=== PATIENT | female | born 1985 | race Caucasian/White ===

== ENCOUNTER 2017-05-26 12:15 | Observation (INO) | payer OTHER | END 2017-05-26 13:55 | disposition home or self-care (01) | LOC: MW.OBCHECK 12:15 → MW.OB 12:20 → MW.OBCHECK 13:55 | PROVIDERS: ADMIT Obstetrics & Gynecology; ATTEND Obstetrics & Gynecology | DX: Z36.89 Encounter for other specified antenatal screening (principal); O24.414 Gestational diabetes mellitus in pregnancy, insulin controlled; E66.01 Morbid (severe) obesity due to excess calories; Z3A.31 31 weeks gestation of pregnancy | CPT/HCPCS: 36415; 59025; 83036 ==

== ENCOUNTER 2017-07-08 12:54 | Inpatient (IN) | payer OTHER ==
[2017-07-08] MEDS ORDERED: Sodium Chloride 0.9% 2.5 ML Syringe FLUSH PRN (15:36)
[2017-07-08] MEDS ORDERED: ceFAZolin 2 GM in Premix Bag 1 BAG IV ONE (15:36)
[2017-07-08] MEDS ORDERED: Sodium Chloride 0.9% 10 ML Syringe FLUSH PRN (15:36)
[2017-07-08] MEDS ORDERED: Citric Acid/Sodium Citrate Solution 30 ML Cup PO SCH (15:45)
[2017-07-08] MEDS ORDERED: Oxytocin/0.9 % Sodium Chloride 30 UNIT/500 ML BAG IV SCH (15:45)
--- NOTE | 2017-07-08 15:55 | PCM.PREANE ---
Preanesthetic Assessment - Procedure Proposed Procedure: ; due to non-reassurring activity (tubal). - Anesthesia/Transfusion/Family Hx Anesthesia History: Prior Anesthesia Without Reaction Family History of Anesthesia Reaction: No Intubation History: Unknown Additional History: Prior still in past; today when decision was made she had food at 1400 to stimulate fetus, needs 2+ hours to get back here for delivery so plan is for the surgical procedure to be done around 2000 hrs. - Review of Systems General: No Symptoms Pulmonary: Cough (recovering from URI few weeks ago.), Other Cardiovascular: No Symptoms Gastrointestinal: Other (GERD) Neurological: Difficulty Walking (due to bocy habitus with ) Other: Reports: Diabetes - Physical Assessment NPO Status Date: 07/08/17 NPO Status Time: 14:00 Height: 5 ft 9 in Weight: 296 lb ASA Class: 3 Mental Status: Alert & Oriented x3 Airway Class: Mallampati = 1 Dentition: Reports: Normal Dentition Thyro-Mental Finger Breadths: 3 Mouth Opening Finger Breadths: 3 ROM/Head Extension: Full Lungs: Clear to Auscultation, Normal Respiratory Effort Cardiovascular: Regular Rate, Regular Rhythm, No Murmurs Other: Back examined - palpable midline posterior processes of lumbar vertebrae - Allergies Allergies/Adverse Reactions: Allergies Allergy/AdvReac Type Severity Reaction Status Date / Time No Known Allergies Allergy Verified 06/02/17 12:45 - Blood Blood Available: No - Anesthesia Plan Pre-Op Medication Ordered: Antacids - Acknowledgements Anesthesia Type Planned: Spinal Pt an Appropriate Candidate for the Planned Anesthesia: Yes Alternatives and Risks of Anesthesia Discussed w Pt/Guardian: Yes Pt/Guardian Understands and Agrees with Anesthesia Plan: Yes PreAnesthesia Questionnaire - HOME MEDS Home Medications: Home Meds Vit W-Ca,Fe,FA(<1 mg) [ Vitamins] 1 tab PO DAILY 04/28/17 [ History] Insulin Detemir [Levemir Flextouch] 100 ml SUBCUT ASDIRECTED PRN 05/26/17 [ History] Insulin Lispro [Humalog] 100 pen SUBCUT ASDIRECTED PRN 05/26/17 [History] Iron 1 tab PO DAILY 05/26/17 [History] - CURRENT (IN HOUSE) MEDS Current Meds: Current Medications Citric Acid/Sodium Citrate (Bicitra Solution) 30 ml PO .ONCE MAYRA Cefazolin Sodium/Dextrose 2 gm (/ Premix) 50 mls @ 100 mls/hr IV ONETIME ONE Stop: 07/08/17 16:05 Lactated Ringer's (Ringers, Lactated) 1,000 mls @ 500 mls/hr IV .BOLUS MAYRA Sodium Chloride (Saline Flush) 10 ml FLUSH ASDIRECTED PRN PRN Reason: Keep Vein Open Sodium Chloride (Saline Flush) 2.5 ml FLUSH ASDIRECTED PRN PRN Reason: Keep Vein Open Discontinued Medications Oxytocin/Sodium Chloride (Oxytocin 30 Unit/500 Ml-Ns) 30 unit in 500 mls @ 250 mls/hr IV TITRATE MAYRA
[2017-07-08] MEDS ORDERED: ceFAZolin/Dextrose,Iso-Osmotic 2 GM/50 ML Duplex Bag IV ONE (17:39)
[2017-07-08] MEDS ORDERED: ePHEDrine 50 MG/ML SDV ONE (17:39)
[2017-07-08] MEDS ORDERED: Morphine PF 1 MG/ML Amp ONE (17:41)
[2017-07-08] MEDS: Lactated Ringers 1,000 ML IV SCH ×2 (17:45→18:42)
[2017-07-08] MEDS ORDERED: Octyl 2-Cyanoacrylate 1 Tube ONE (17:45)
[2017-07-08] MEDS ORDERED: Oxytocin/0.9 % Sodium Chloride 30 UNIT/500 ML BAG ONE (21:00)
[2017-07-08] MEDS ORDERED: Phenylephrine/Normal Saline 100 MCG/ML 10 ML Syringe ONE (21:36)
[2017-07-08] MEDS ORDERED: fentaNYL 250 MCG/5 ML SDV ONE (22:01)
[2017-07-08] MEDS ORDERED: Ondansetron 4 MG/2 ML SDV IV PRN (22:18)
[2017-07-08] MEDS ORDERED: Bisacodyl 10 MG Supp RECTAL PRN (22:18)
[2017-07-08] MEDS ORDERED: Lanolin 100% Cream 7 GM Tube TOP PRN (22:18)
[2017-07-08] MEDS ORDERED: diphenhydrAMINE 50 MG/ML SDV IVPUSH PRN (22:18)
--- NOTE | 2017-07-08 22:18 | PCM.LDHP ---
L&D History of Present Illness - General Date of Service: 07/08/17 Admit Problem/Dx: Patient Status Order with Admit Dx/Problem 07/08/17 13:17 Patient Status [ADT] Routine Admission Diagnosis/Problem Admission Diagnosis/Problem section Source of Information: Patient History Limitations: Reports: No Limitations - History of Present Illness Improves with: Reports: None Worsens with: Reports: None Associated Symptoms: Reports: N - Related Data Allergies/Adverse Reactions: Allergies Allergy/AdvReac Type Severity Reaction Status Date / Time No Known Allergies Allergy Verified 06/02/17 12:45 Home Medications: Home Meds Vit W-Ca,Fe,FA(<1 mg) [ Vitamins] 1 tab PO DAILY 04/28/17 [ History] Insulin Detemir [Levemir Flextouch] 100 ml SUBCUT ASDIRECTED PRN 05/26/17 [ History] Insulin Lispro [Humalog] 100 pen SUBCUT ASDIRECTED PRN 05/26/17 [History] Iron 1 tab PO DAILY 05/26/17 [History] Past Medical History Respiratory History: Reports: Other (See Below) Other Respiratory History: "lung infection after last C/Section 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 OB/BYN History: 2 hemorrhages after stillborn baby (was a v-rc) Psychiatric History: Reports: Depression Other Psychiatric History: hx of depression with all pregnancies Endocrine/Metabolic History: Reports: Diabetes, Type II Other Endocrine/Metabolic History: was diagnosed with type II diabetes at beginning of this Hematologic History: Reports: Blood Transfusion(s) Other Hematologic History: after hemorrhage Social & Family History - Family History Cardiac: Reports: Heart Failure Endocrine/Metabolic: Reports: Diabetes, type II - Tobacco Use Smoking Status *Q: Never Smoker Second Hand Smoke Exposure: No - Caffeine Use Caffeine Use: Reports: Soda - Recreational Drug Use Recreational Drug Use: No H&P Review of Systems - Review of Systems: Review Of Systems: See Below General: Reports: No Symptoms HEENT: Reports: No Symptoms Pulmonary: Reports: No Symptoms Cardiovascular: Reports: No Symptoms Gastrointestinal: Reports: No Symptoms Genitourinary: Reports: No Symptoms Musculoskeletal: Reports: No Symptoms Skin: Reports: No Symptoms Psychiatric: Reports: No Symptoms Neurological: Reports: No Symptoms Hematologic/Lymphatic: Reports: No Symptoms Immunologic: Reports: No Symptoms L&D Exam - Exam Exam: See Below - Vital Signs Weight: 134.263 kg - OB Specific Fundal Height In cm: 39 Contraction Intensity: Mild Movement: Active Heart Tones: Present Presentation: Vertex - Berg Score Berg Score Cervix Position: Posterior Berg Score Consistency: Firm Berg Score Effacement: 31-50% Berg Score Dilation: Closed Berg Score 's Station: -3 Berg Score Total: 1 - Exam General: Alert, Oriented HEENT: PERRLA, Conjunctiva Clear, EACs Clear, EOMI, Hearing Intact, Mucosa Moist & [place], Nares Patent, Normal Nasal Septum, Posterior Pharynx Clear, TMs Clear Neck: Supple, Trachea Midline Lungs: Clear to Auscultation, Normal Respiratory Effort Cardiovascular: Regular Rate, Regular Rhythm GI/Abdominal Exam: Normal Bowel Sounds, Soft, Non-Tender, No Organomegaly, No Distention, No Abnormal Bruit, No Mass, Pelvis Stable Rectal Exam: Normal Exam, Normal Rectal Tone Genitourinary: Normal external exam, Normal bimanual exam, Normal speculum exam Back Exam: Normal Inspection, Full Range of Motion Extremities: Normal Inspection, Normal Range of Motion, Non-Tender, No Pedal Edema, Normal Capillary Refill Skin: Warm, Dry, Intact Neurological: Cranial Nerves Intact, Reflexes Equal Bilateral Psychiatric: Alert, Normal Affect, Normal Mood - Patient Data Lab Results Last 24 hrs: Laboratory Results - last 24 hr 07/08/17 07/08/17 07/08/17 Range/Units 16:05 16:05 19:48 WBC 8.06 (4.0-11.0) K/uL RBC 4.41 (4.30-5.90) M/uL Hgb 12.5 (12.0-16.0) g/dL Hct 37.0 (36.0-46.0) % MCV 83.9 (80.0-98.0) fL MCH 28.3 (27.0-32.0) pg MCHC 33.8 (31.0-37.0) g/dL RDW Std Deviation 42.7 (28.0-62.0) fl RDW Coeff of Ester 14 (11.0-15.0) % Plt Count 249 (150-400) K/uL MPV 9.80 (7.40-12.00) fL Nucleated RBC % 0.0 /100WBC Nucleated RBCs # 0 K/uL POC Glucose 114 H (60-110) mg/dL Blood Type A POSITIVE Antibody Screen NEGATIVE Result Diagrams: 07/08/17 16:05 Problem List Initiated/Reviewed/Updated: Yes Orders Last 24hrs: Active Orders 24 hr Category Date Time Status Patient Status [ADT] Routine ADT 07/08/17 13:17 Active Non Stress Test [RC] PER UNIT ROUTINE Care 07/08/17 13:17 Active Notify Provider Vital Signs [RC] PRN Care 07/08/17 15:37 Active Procedure Site Prep Instruct [RC] ASDIRECTED Care 07/08/17 15:36 Active Up ad Ivy [RC] ASDIRECTED Care 07/08/17 13:17 Active Up ad Ivy [RC] ASDIRECTED Care 07/08/17 15:36 Active Verify Patient Consent Obtain [RC] ASDIRECTED Care 07/08/17 15:36 Active Vital Signs [RC] PER UNIT ROUTINE Care 07/08/17 13:17 Active Vital Signs [RC] PER UNIT ROUTINE Care 07/08/17 15:36 Active Nothing Per Oral Diet [DIET] Diet 07/08/17 Dinner Active Citric Acid/Sodium Citrate [Bicitra Solution] Med 07/08/17 15:45 Active 30 ml PO .ONCE Lactated Ringers [Ringers, Lactated] 1,000 ml Med 07/08/17 15:45 Active IV .BOLUS Sodium Chloride 0.9% [Saline Flush] Med 07/08/17 15:36 Active 10 ml FLUSH ASDIRECTED PRN Sodium Chloride 0.9% [Saline Flush] Med 07/08/17 15:36 Active 2.5 ml FLUSH ASDIRECTED PRN Peripheral IV Insertion Adult [OM.PC] Routine Oth 07/08/17 15:36 Ordered Schedule Procedure [COMM] Per Unit Routine Oth 07/08/17 15:36 Ordered Resuscitation Status Routine Resus Stat 07/08/17 13:17 Ordered Medication Orders Citric Acid/Sodium Citrate (Bicitra Solution) 30 ml PO .ONCE MAYRA Last Admin: 07/08/17 21:03 Dose: 30 ml Lactated Ringer's (Ringers, Lactated) 1,000 mls @ 500 mls/hr IV .BOLUS MAYRA Last Admin: 07/08/17 18:42 Dose: 125 mls/hr Infusion: 07/08/17 18:42 Dose: 1,000 mls/hr Admin: 07/08/17 17:45 Dose: 1,000 mls/hr Sodium Chloride (Saline Flush) 10 ml FLUSH ASDIRECTED PRN PRN Reason: Keep Vein Open Sodium Chloride (Saline Flush) 2.5 ml FLUSH ASDIRECTED PRN PRN Reason: Keep Vein Open
[2017-07-08] MEDS ORDERED: fentaNYL 100 MCG/2 ML SDV IVPUSH PRN (22:54)
[2017-07-08] MEDS ORDERED: Naloxone 0.4 MG/ML Syringe IVPUSH PRN (22:54)
[2017-07-08] MEDS ORDERED: Nalbuphine 10 MG/1 ML Vial IVPUSH PRN (22:54)
[2017-07-08] MEDS ORDERED: Oxytocin 10 Units/1 ML SDV ONE (23:02)
[2017-07-08] MEDS ORDERED: Methylergonovine 0.2 MG/1 ML Amp ONE (23:11)
[2017-07-08] MEDS ORDERED: Misoprostol 200 MCG Tab PO SCH (23:15)
[2017-07-08] MEDS ORDERED: Methylergonovine 0.2 MG/1 ML Amp IM SCH (23:15)
--- NOTE | 2017-07-08 23:59 | PCM.POSTAN ---
POST ANESTHESIA ASSESSMENT - MENTAL STATUS Mental Status: Alert, Oriented - VITAL SIGNS Pulse Rate: 90 SaO2: 99 Resp Rate: 13 Blood Pressure: 116/53 - RESPIRATORY Respiratory Status: Respiratory Rate WNL, Airway Patent, O2 Saturation Stable - CARDIOVASCULAR CV Status: Pulse Rate WNL, Blood Pressure Stable - GASTROINTESTINAL GI Status: No Symptoms - PAIN Pain Score: 2 (Just a 10 with fundus checks) - POST OP HYDRATION Hydration Status: Adequate & Stable - OBSERVATIONS Free Text/Narrative:: In PACU pt was having an uneventful recovery until approx 2257 when pt's SBP dropped to the 80's and pt was very symptomatic (nausea, lightheadedness, color drained from face). Pt's uterus remained firm per RN, with moderate bleeding - no large clots. Sunni Flor called @ 2310 and updated on pt's condition. Order for IM Methergine and PO Cytotec obtained. IM Methergine given to L thigh @ 2314. 1 GM of TXA given over 10 min, additional 15 units Pitocin in IVF, H&H ordered stat. By approx 2335, BP's are getting better and pt is no longer symptomatic. H&H consistent with blood loss at this time. Scant flow noted at 2355 per RN and BP's stable. BG = 163 (after juice). Plan to discharge from PACU as pt has stabilized.
[2017-07-09] MEDS: Lactated Ringers 1,000 ML IV SCH ×3 (00:36→15:13)
--- NOTE | 2017-07-09 01:13 | OR ---
SURGEON: Curtis Vail MD DATE OF PROCEDURE: PREOPERATIVE DIAGNOSES: 1. Intrauterine at 37 and 1/2 weeks. 2. Insulin-dependent diabetic, acceptable control. 3. The patient did have non-reassuring heart rate today on her NST and she was scheduled for elective repeat section next week. POSTOPERATIVE DIAGNOSES: 1. Intrauterine at 37 and 1/2 weeks. 2. Insulin-dependent diabetic, acceptable control. 3. The patient did have non-reassuring heart rate today on her NST and she was scheduled for elective repeat section next week. OPERATION PERFORMED: Repeat low transverse section with bilateral salpingectomy to achieve a tubal ligation. MAINTENANCE CHIEF: Sunni Flor CNM. ANESTHESIA: Patricia Serrano and Jeffery Richmond M.D. FLIGHT TEST ENGINEER: Bianca Nguyen M.D. ESTIMATED BLOOD LOSS: 700 mL. COMPLICATIONS: None. INDICATION FOR SURGERY: This patient is an insulin-dependent diabetic. She had previous section x2. She was approved by the ethic committee for tubal ligation. The patient have NST. She is 37 and 1/2 weeks. The patient assured her NST was not reactive and she had tachycardia and there is some element of subtle late deceleration, so we decided to accelerate her C- section, do it today rather than doing it tomorrow. PROCEDURE IN DETAIL: The patient was brought to the OR, properly identified. After adequate level of anesthesia, the patient was prepped and draped in sterile fashion as usual, with a Zavala catheter in the bladder, and low transverse Pfannenstiel skin incision was done. The Shilpa fascia and rectus fascia were opened in direction of the incision. The 2 recti muscles were , and peritoneal cavity was entered. Bladder flap was raised in the usual manner pushing the bladder away from the lower uterine segment. Low transverse uterine incision was done, extended manually, and fetus was in a vertex position, delivered without any problem. The placenta delivered spontaneous, complete, and intact and then repair of the lower uterine segment was done with 2-0 Vicryl continuous interlocking in 2 layers and then reperitonealization done with 3-0 Vicryl continuous. Then, attention was paid to the tube and using the Harmonic scapula, bilateral total salpingectomy is performed on both sides, thus achieving bilateral tubal ligation. Once that done, the peritoneal cavity evacuated completely from all blood and blood clot, and closed with 3-0 Vicryl continuous. The rectus fascia was closed with #1 PDS double strand continuous, the Shilpa fascia with 3-0 Vicryl continuous, and the skin was closed with 3-0 on a Ranulfo needle in a subcuticular fashion, and Dermabond. Instrument, sponge count was correct. The patient tolerated the procedure well, went to recovery room in stable general condition. PETE / CRISTOFER /[id number]
[2017-07-09] MEDS ORDERED: Phenylephrine/Normal Saline 100 MCG/ML 10 ML Syringe ONE (01:52)
[2017-07-09] MEDS ORDERED: Insulin Aspart 100 Units/ML 3 ML Pen SUBCUT SCH (02:58)
[2017-07-09] MEDS ORDERED: Furosemide 40 MG/4 ML VIAL IVPUSH ONE (03:10)
--- NOTE | 2017-07-09 03:59 | PCM.SN ---
- Free Text/Narrative Note: Anesthesia Note: Called @ 1:30 AM by OB reporting multiple SBPs in the 70's. Minimal vaginal bleeding per report and pt not symptomatic, although in trendelenburg. Order given for a stat H&H and to try to take a manual BP as pt's body habitus makes BPs difficult. Also asked them to call Dr. Vail - told that he has already been notified and asked that anesthesia be called to deal the the BP. Upon arrival @ approximately 0150, lab is currently being drawn and pt reports that she woke up earlier feeling very nauseous and unwell and had her call the nurse. Unable to obtain manual BP as well - 0.1 mg IV Phenylephrine given for SBP in the 70's, although pt is awake and talking, but still in trendelenburg. After Hgb results at 8.8, Dr. Vail called at approximately 0205. Informed of situation with decreased Hgb, unstable BP, and suspected internal bleeding since uterus has been firm with minimal output and pt is complaining of severe bilateral shoulder pain. Order for blood given. Explained that due to extreme difficulty getting a BP it would be best to tx to ICU and place an arterial line. Agrees. Called blood bank and requested 2 units crossmatched blood now, with 2 additional units on hold - order placed in computer. Blood bank states it will be an hour - strongly encouraged to have units done in a timely manner as pt is in a critical situation. Dr. Richmond called and notified of situation and will be in. Upon return to pt's room updated pt and her on plan of care. At this time cuff pressures are in the 110's. Explained possible need for an arterial line and pt and give verbal consent. Pt tx to ICU #1. Still difficult to get a cuff pressure. Single attempt at artline on R Radial artery per myself under sterile technique (see Dr. Richmond's notes for his attempts). Unsuccessful due to thready pulse. Blood bank still did not have crossmatched blood, therefore Dr. Vail asks for a unit of uncrossmatched to be given d/t pt' s deteriorating state. While that unit infusing, the first crossmatched is available - infused in R hand IV with fluid warmer. A third unit was also given per nursing staff. Pt tolerates well. VSS much more stable and pt verbalizes feeling much better, although still weak. Plan for labs in the AM as long as pt remains stable.
--- NOTE | 2017-07-09 04:03 | PCM.SN ---
- Free Text/Narrative Note: Patient s/p last evening. HOME LIGHTING ADVISER summoned with low blood pressure after being discharged to OB floor. Assessment led to transfer to ICU bed where more intensive care can be provided. I was summoned to assist. Dr. Vail was also called. Additional IV access was being pursued. Blood was to be emergently provided as O neg while Type and Cross was being processed. The H/H had dropped from post op and clinically she was hypovolemic, hypotensive and anemic. Patient was awake and aware of changes which also included elevated BS at 250. Order was initiated for standing blood sugar protocol. Large cuff BPs were not easily obtained so attempt was made to obtain an arterial access for direct BP measurement. Radial pulses were faint at best. With response to the blood administration and improvement of vitals, bedside assessments would continue. Further arterial access and also central venous access would be pursued with any additional hemodynamic instability. and patient gave verbal consent for these if necessary. Jennifer Serrano CRNA was present from 0130 to 0330 and I was present from 0230 to 0330.
[2017-07-09] MEDS: Ketorolac 30 MG/ML SDV IVPUSH SCH ×2 (04:21→04:29)
--- NOTE | 2017-07-09 07:46 | PCM.SN ---
- Free Text/Narrative Note: At bedside to draw lab as labor/excavator has been unsuccessful. Ultrasound was used to identify the Lt AC, under direct visualization a 20g x 1.88in IV catheter was placed into the Lt AC. 10mL of blood was obtained for lab studies. IV catheter flushes easily and was secured with tape and tegaderm. Pt tolerated the procedure well.
[2017-07-09] MEDS: Insulin Aspart 100 Units/ML 3 ML Pen SUBCUT SCH ×4 (07:53→21:36)
[2017-07-09] MEDS: Docusate Sodium 100 MG Cap PO SCH ×2 (08:00→21:36)
[2017-07-09] MEDS: Acetaminophen/oxyCODONE 325-5 MG Tab PO PRN ×3 (08:52→19:41)
[2017-07-09] MEDS: oxyCODONE 5 MG Tab PO PRN (12:08)
--- NOTE | 2017-07-09 13:09 | PCM.SURGPN ---
- General Info Date of Service: 07/09/17 POD#: 1 Functional Status: Reports: Pain Controlled - Review of Systems General: Reports: No Symptoms HEENT: Reports: No Symptoms Pulmonary: Reports: No Symptoms Cardiovascular: Reports: No Symptoms Gastrointestinal: Reports: No Symptoms Genitourinary: Reports: No Symptoms Musculoskeletal: Reports: No Symptoms Skin: Reports: No Symptoms Neurological: Reports: No Symptoms Psychiatric: Reports: No Symptoms - Patient Data Vitals - Most Recent: Last Vital Signs Temp 36.6 C 07/09/17 10:30 Pulse 105 H 07/09/17 03:24 Resp 19 07/09/17 11:51 BP 129/74 07/09/17 10:30 Pulse Ox 95 07/09/17 11:51 Weight - Most Recent: 134.263 kg I&O - Last 24 Hours: Intake & Output 07/08/17 07/09/17 07/09/17 22:59 06:59 14:59 Intake Total 4741 655 Output Total 150 870 255 Balance -150 3871 400 Lab Results Last 24 Hrs: Laboratory Results - last 24 hr 07/08/17 07/08/17 07/08/17 Range/Units 16:05 16:05 19:48 WBC 8.06 (4.0-11.0) K/uL RBC 4.41 (4.30-5.90) M/uL Hgb 12.5 (12.0-16.0) g/dL Hct 37.0 (36.0-46.0) % MCV 83.9 (80.0-98.0) fL MCH 28.3 (27.0-32.0) pg MCHC 33.8 (31.0-37.0) g/dL RDW Std Deviation 42.7 (28.0-62.0) fl RDW Coeff of Ester 14 (11.0-15.0) % Plt Count 249 (150-400) K/uL MPV 9.80 (7.40-12.00) fL Neut % (Auto) (48.0-80.0) % Lymph % (Auto) (16.0-40.0) % [place] % (Auto) (0.0-15.0) % Eos % (Auto) (0.0-7.0) % Baso % (Auto) (0.0-1.5) % Neut # (Auto) (1.4-5.7) K/uL Lymph # (Auto) (0.6-2.4) K/uL [place] # (Auto) (0.0-0.8) K/uL Eos # (Auto) (0.0-0.7) K/uL Baso # (Auto) (0.0-0.1) K/uL Nucleated RBC % 0.0 /100WBC Nucleated RBCs # 0 K/uL INR Fibrinogen (215-411) mg/dL Sodium (136-145) mmol/L Potassium (3.5-5.1) mmol/L Chloride (98-107) mmol/L Carbon Dioxide (21.0-32.0) mmol/L BUN (7.0-18.0) mg/dL Creatinine (0.6-1.0) mg/dL Est Cr Clr Drug Dosing mL/min Estimated GFR (MDRD) ml/min Glucose (74-106) mg/dL POC Glucose 114 H (60-110) mg/dL Calcium (8.5-10.1) mg/dL Total Bilirubin (0.2-1.0) mg/dL AST (15-37) IU/L ALT (14-63) IU/L Alkaline Phosphatase (46-116) U/L Total Protein (6.4-8.2) g/dL Albumin (3.4-5.0) g/dL Globulin (2.0-3.5) g/dL Albumin/Globulin Ratio (1.3-2.8) Blood Type A POSITIVE Antibody Screen NEGATIVE Crossmatch See Detail 07/08/17 07/08/17 07/09/17 Range/Units 23:28 23:52 01:48 WBC (4.0-11.0) K/uL RBC (4.30-5.90) M/uL Hgb 10.9 L 8.8 L (12.0-16.0) g/dL Hct 32.9 L 26.9 L (36.0-46.0) % MCV (80.0-98.0) fL MCH (27.0-32.0) pg MCHC (31.0-37.0) g/dL RDW Std Deviation (28.0-62.0) fl RDW Coeff of Ester (11.0-15.0) % Plt Count (150-400) K/uL MPV (7.40-12.00) fL Neut % (Auto) (48.0-80.0) % Lymph % (Auto) (16.0-40.0) % [place] % (Auto) (0.0-15.0) % Eos % (Auto) (0.0-7.0) % Baso % (Auto) (0.0-1.5) % Neut # (Auto) (1.4-5.7) K/uL Lymph # (Auto) (0.6-2.4) K/uL [place] # (Auto) (0.0-0.8) K/uL Eos # (Auto) (0.0-0.7) K/uL Baso # (Auto) (0.0-0.1) K/uL Nucleated RBC % /100WBC Nucleated RBCs # K/uL INR Fibrinogen (215-411) mg/dL Sodium (136-145) mmol/L Potassium (3.5-5.1) mmol/L Chloride (98-107) mmol/L Carbon Dioxide (21.0-32.0) mmol/L BUN (7.0-18.0) mg/dL Creatinine (0.6-1.0) mg/dL Est Cr Clr Drug Dosing mL/min Estimated GFR (MDRD) ml/min Glucose (74-106) mg/dL POC Glucose 163 H (60-110) mg/dL Calcium (8.5-10.1) mg/dL Total Bilirubin (0.2-1.0) mg/dL AST (15-37) IU/L ALT (14-63) IU/L Alkaline Phosphatase (46-116) U/L Total Protein (6.4-8.2) g/dL Albumin (3.4-5.0) g/dL Globulin (2.0-3.5) g/dL Albumin/Globulin Ratio (1.3-2.8) Blood Type Antibody Screen Crossmatch 07/09/17 07/09/17 07/09/17 Range/Units 02:46 04:25 07:30 WBC 17.38 H (4.0-11.0) K/uL RBC 3.88 L (4.30-5.90) M/uL Hgb 11.0 L (12.0-16.0) g/dL Hct 32.6 L (36.0-46.0) % MCV 84.0 (80.0-98.0) fL MCH 28.4 (27.0-32.0) pg MCHC 33.7 (31.0-37.0) g/dL RDW Std Deviation 42.8 (28.0-62.0) fl RDW Coeff of Ester 14 (11.0-15.0) % Plt Count 223 (150-400) K/uL MPV 9.50 (7.40-12.00) fL Neut % (Auto) 87.7 H (48.0-80.0) % Lymph % (Auto) 7.7 L (16.0-40.0) % [place] % (Auto) 4.4 (0.0-15.0) % Eos % (Auto) 0.1 (0.0-7.0) % Baso % (Auto) 0.1 (0.0-1.5) % Neut # (Auto) 15.3 H (1.4-5.7) K/uL Lymph # (Auto) 1.3 (0.6-2.4) K/uL [place] # (Auto) 0.8 (0.0-0.8) K/uL Eos # (Auto) 0.0 (0.0-0.7) K/uL Baso # (Auto) 0.0 (0.0-0.1) K/uL Nucleated RBC % 0.0 /100WBC Nucleated RBCs # 0 K/uL INR Fibrinogen (215-411) mg/dL Sodium (136-145) mmol/L Potassium (3.5-5.1) mmol/L Chloride (98-107) mmol/L Carbon Dioxide (21.0-32.0) mmol/L BUN (7.0-18.0) mg/dL Creatinine (0.6-1.0) mg/dL Est Cr Clr Drug Dosing mL/min Estimated GFR (MDRD) ml/min Glucose (74-106) mg/dL POC Glucose 256 H 245 H (60-110) mg/dL Calcium (8.5-10.1) mg/dL Total Bilirubin (0.2-1.0) mg/dL AST (15-37) IU/L ALT (14-63) IU/L Alkaline Phosphatase (46-116) U/L Total Protein (6.4-8.2) g/dL Albumin (3.4-5.0) g/dL Globulin (2.0-3.5) g/dL Albumin/Globulin Ratio (1.3-2.8) Blood Type Antibody Screen Crossmatch 07/09/17 07/09/17 07/09/17 Range/Units 07:30 07:30 07:53 WBC (4.0-11.0) K/uL RBC (4.30-5.90) M/uL Hgb (12.0-16.0) g/dL Hct (36.0-46.0) % MCV (80.0-98.0) fL MCH (27.0-32.0) pg MCHC (31.0-37.0) g/dL RDW Std Deviation (28.0-62.0) fl RDW Coeff of Ester (11.0-15.0) % Plt Count (150-400) K/uL MPV (7.40-12.00) fL Neut % (Auto) (48.0-80.0) % Lymph % (Auto) (16.0-40.0) % [place] % (Auto) (0.0-15.0) % Eos % (Auto) (0.0-7.0) % Baso % (Auto) (0.0-1.5) % Neut # (Auto) (1.4-5.7) K/uL Lymph # (Auto) (0.6-2.4) K/uL [place] # (Auto) (0.0-0.8) K/uL Eos # (Auto) (0.0-0.7) K/uL Baso # (Auto) (0.0-0.1) K/uL Nucleated RBC % /100WBC Nucleated RBCs # K/uL INR 0.98 Fibrinogen 335 (215-411) mg/dL Sodium 136 (136-145) mmol/L Potassium 5.5 H (3.5-5.1) mmol/L Chloride 104 (98-107) mmol/L Carbon Dioxide 22.2 (21.0-32.0) mmol/L BUN 19 H (7.0-18.0) mg/dL Creatinine 1.1 H (0.6-1.0) mg/dL Est Cr Clr Drug Dosing 75.31 mL/min Estimated GFR (MDRD) 56.9 ml/min Glucose 230 H (74-106) mg/dL POC Glucose 221 H (60-110) mg/dL Calcium 7.5 L (8.5-10.1) mg/dL Total Bilirubin 0.5 (0.2-1.0) mg/dL AST 13 L (15-37) IU/L ALT 10 L (14-63) IU/L Alkaline Phosphatase 53 (46-116) U/L Total Protein 5.0 L (6.4-8.2) g/dL Albumin 1.7 L (3.4-5.0) g/dL Globulin 3.3 (2.0-3.5) g/dL Albumin/Globulin Ratio 0.5 L (1.3-2.8) Blood Type Antibody Screen Crossmatch 07/09/17 Range/Units 11:17 WBC (4.0-11.0) K/uL RBC (4.30-5.90) M/uL Hgb (12.0-16.0) g/dL Hct (36.0-46.0) % MCV (80.0-98.0) fL MCH (27.0-32.0) pg MCHC (31.0-37.0) g/dL RDW Std Deviation (28.0-62.0) fl RDW Coeff of Ester (11.0-15.0) % Plt Count (150-400) K/uL MPV (7.40-12.00) fL Neut % (Auto) (48.0-80.0) % Lymph % (Auto) (16.0-40.0) % [place] % (Auto) (0.0-15.0) % Eos % (Auto) (0.0-7.0) % Baso % (Auto) (0.0-1.5) % Neut # (Auto) (1.4-5.7) K/uL Lymph # (Auto) (0.6-2.4) K/uL [place] # (Auto) (0.0-0.8) K/uL Eos # (Auto) (0.0-0.7) K/uL Baso # (Auto) (0.0-0.1) K/uL Nucleated RBC % /100WBC Nucleated RBCs # K/uL INR Fibrinogen (215-411) mg/dL Sodium (136-145) mmol/L Potassium (3.5-5.1) mmol/L Chloride (98-107) mmol/L Carbon Dioxide (21.0-32.0) mmol/L BUN (7.0-18.0) mg/dL Creatinine (0.6-1.0) mg/dL Est Cr Clr Drug Dosing mL/min Estimated GFR (MDRD) ml/min Glucose (74-106) mg/dL POC Glucose 199 H (60-110) mg/dL Calcium (8.5-10.1) mg/dL Total Bilirubin (0.2-1.0) mg/dL AST (15-37) IU/L ALT (14-63) IU/L Alkaline Phosphatase (46-116) U/L Total Protein (6.4-8.2) g/dL Albumin (3.4-5.0) g/dL Globulin (2.0-3.5) g/dL Albumin/Globulin Ratio (1.3-2.8) Blood Type Antibody Screen Crossmatch Med Orders - Current: Current Medications Bisacodyl (Dulcolax) 10 mg RECTAL .ONCE PRN PRN Reason: Constipation Citric Acid/Sodium Citrate (Bicitra Solution) 30 ml PO .ONCE [facility] Last Admin: 07/08/17 21:03 Dose: 30 ml Diphenhydramine HCl (Benadryl) 25 mg IVPUSH Q6H PRN PRN Reason: Itching or Nausea Docusate Sodium (Colace) 100 mg PO BID [facility] Last Admin: 07/09/17 08:00 Dose: 100 mg Emollient Ointment (Lansinoh Hpa) 0 gm TOP ASDIRECTED PRN PRN Reason: Sore Nipples Fentanyl (Sublimaze) 50 mcg IVPUSH Q5M PRN PRN Reason: Breakthrough Pain Stop: 07/09/17 22:00 Lactated Ringer's (Ringers, Lactated) 1,000 mls @ 500 mls/hr IV .BOLUS [facility] Last Admin: 07/08/17 18:42 Dose: 125 mls/hr Lactated Ringer's (Ringers, Lactated) 1,000 mls @ 125 mls/hr IV ASDIRECTED [facility] Last Admin: 07/09/17 07:50 Dose: 125 mls/hr Ibuprofen (Motrin) 800 mg PO Q8H PRN PRN Reason: mild pain or fever Insulin Aspart (Novolog) 0 unit SUBCUT ACBED MAYRA; Protocol Last Admin: 07/09/17 11:42 Dose: 2 unit Methylergonovine Maleate (Methergine) 0.2 mg IM .ONETIME [facility] Last Admin: 07/08/17 23:38 Dose: 0.2 mg Misoprostol (Cytotec) 400 mcg PO .ONETIME [facility] Last Admin: 07/08/17 23:34 Dose: 400 mcg Nalbuphine HCl (Nubain) 2.5 mg IVPUSH Q3H PRN PRN Reason: Pruritis Stop: 07/09/17 22:54 Last Admin: 07/09/17 04:07 Dose: 2.5 mg Naloxone HCl (Narcan) 0.1 mg IVPUSH ONETIME PRN PRN Reason: RR<6 WITH STIMULATION Stop: 07/09/17 22:54 Ondansetron HCl (Zofran) 4 mg IV Q4H PRN PRN Reason: Nausea/Vomiting Last Admin: 07/09/17 00:01 Dose: 4 mg Oxycodone HCl (Oxycodone) 5 mg PO Q4H PRN PRN Reason: Pain Last Admin: 07/09/17 12:08 Dose: 5 mg Oxycodone/Acetaminophen (Percocet 325-5 Mg) 1 tab PO Q4H PRN PRN Reason: Pain (moderate 4-6) Last Admin: 07/09/17 08:52 Dose: 1 tab Oxycodone/Acetaminophen (Percocet 325-5 Mg) 2 tab PO Q4H PRN PRN Reason: Pain (moderate 4-6) Sodium Chloride (Saline Flush) 10 ml FLUSH ASDIRECTED PRN PRN Reason: Keep Vein Open Sodium Chloride (Saline Flush) 2.5 ml FLUSH ASDIRECTED PRN PRN Reason: Keep Vein Open Discontinued Medications Cefazolin Sodium/Dextrose (Ancef) Confirm Administered Dose 2 gm IV .STK-MED ONE Stop: 07/08/17 17:40 Ephedrine Sulfate (Ephedrine Sulfate) Confirm Administered Dose 50 mg .ROUTE .STK-MED ONE Stop: 07/08/17 17:40 Fentanyl (Sublimaze) Confirm Administered Dose 250 mcg .ROUTE .STK-MED ONE Stop: 07/08/17 22:02 Furosemide (Lasix) 40 mg IVPUSH NOW ONE Stop: 07/09/17 03:11 Last Admin: 07/09/17 03:27 Dose: 40 mg Cefazolin Sodium/Dextrose 2 gm (/ Premix) 50 mls @ 100 mls/hr IV ONETIME ONE Stop: 07/08/17 16:05 Last Admin: 07/09/17 04:18 Dose: Not Given Oxytocin/Sodium Chloride (Oxytocin 30 Unit/500 Ml-Ns) 30 unit in 500 mls @ 250 mls/hr IV TITRATE MAYRA Oxytocin/Sodium Chloride (Oxytocin 30 Unit/500 Ml-Ns) Confirm Administered Dose 30 unit in 500 mls @ as directed .ROUTE .[facility]-MED ONE Stop: 07/08/17 21:01 Last Admin: 07/09/17 04:19 Dose: Not Given Insulin Aspart (Novolog) 0 unit SUBCUT ACBREAKFASTANDBED MAYRA; Protocol Last Admin: 07/09/17 03:08 Dose: 6 units Ketorolac Tromethamine (Toradol) 30 mg IVPUSH Q6H [facility] Stop: 07/09/17 22:01 Last Admin: 07/09/17 04:29 Dose: Not Given Methylergonovine Maleate (Methergine) Confirm Administered Dose 0.2 mg .ROUTE .ST-MED ONE Stop: 07/08/17 23:12 Morphine Sulfate (Duramorph Pf) Confirm Administered Dose 1 mg .ROUTE .ST-MED ONE Stop: 07/08/17 17:42 Octyl Cyanoacrylate (Dermabond Advance) Confirm Administered Dose 1 applic .ROUTE .[facility] ONE Stop: 07/08/17 17:46 Oxytocin (Pitocin) Confirm Administered Dose 20 unit .ROUTE .STK-MED ONE Stop: 07/08/17 23:03 Phenylephrine HCl (Phenylephrine In Ns 100 Mcg/Ml) Confirm Administered Dose 1 mg .ROUTE .STK-MED ONE Stop: 07/08/17 21:37 Phenylephrine HCl (Phenylephrine In Ns 100 Mcg/Ml) Confirm Administered Dose 1 mg .ROUTE .ST-MED ONE Stop: 07/09/17 01:53 Tranexamic Acid (Cyklokapron) Confirm Administered Dose 1,000 mg .ROUTE .[facility]- MED ONE Stop: 07/08/17 23:17 - Exam Wound/Incisions: Healing Well General: Alert, Oriented HEENT: Pupils Equal Neck: Supple Lungs: Clear to Auscultation, Normal Respiratory Effort Cardiovascular: Regular Rate, Regular Rhythm GI/Abdominal Exam: Normal Bowel Sounds, Soft, Non-Tender, No Organomegaly, No Distention, No Abnormal Bruit, No Mass, Pelvis Stable Extremities: Normal Inspection, Normal Range of Motion, Non-Tender, No Pedal Edema, Normal Capillary Refill Skin: Warm, Dry, Intact Neurological: No New Focal Deficit Psy/Mental Status: Alert, Normal Affect, Normal Mood - Problem List Review Problem List Initiated/Reviewed/Updated: Yes - My Orders Last 24 Hours: Active Orders 24 hr Category Date Time Status Patient Status [ADT] Routine ADT 07/08/17 22:18 Active Transfer Patient (Change bed) [ADT] Routine ADT 07/09/17 02:25 Ordered Transfer Patient (Change bed) [ADT] Routine ADT 07/09/17 08:31 Ordered Ambulate [RC] PER UNIT ROUTINE Care 07/08/17 22:18 Active Bradycardia-Neuroaxis [employer] [RC] ROUTINE Care 07/08/17 22:54 Active Communication Order [RC] PER UNIT ROUTINE Care 07/08/17 22:18 Active Communication Order [RC] PER UNIT ROUTINE Care 07/08/17 22:18 Active Communication Order [RC] Per Unit Routine Care 07/08/17 22:18 Active Hypertension-Neuroaxis [employer] [RC] ROUTINE Care 07/08/17 22:54 Active Hypotension-Neuroaxis [employer] [RC] ROUTINE Care 07/08/17 22:54 Active May Shower [RC] ASDIRECTED Care 07/08/17 22:18 Active Notify Provider Vital Signs [RC] PRN Care 07/08/17 15:37 Active Oxygen Therapy [RC] PER UNIT ROUTINE Care 07/08/17 22:54 Active RT Incentive Spirometry [RC] Q2HWA Care 07/08/17 22:18 Active Up ad Ivy [RC] ASDIRECTED Care 07/08/17 13:17 Active Up ad Ivy [RC] ASDIRECTED Care 07/08/17 15:36 Active Verify Patient Consent Obtain [RC] ASDIRECTED Care 07/08/17 15:36 Active Vital Signs [RC] PER UNIT ROUTINE Care 07/08/17 22:18 Active Vital Signs [RC] Q4H Care 07/08/17 22:54 Active Regular Diet [DIET] Diet 07/09/17 Lunch Active RED BLOOD CELLS LP [BBK] Routine Lab 07/08/17 16:05 Results TYPE AND SCREEN [BBK] Routine Lab 07/08/17 16:05 Results Acetaminophen/oxyCODONE [Percocet 325-5 MG] Med 07/08/17 22:18 Active 1 tab PO Q4H PRN Acetaminophen/oxyCODONE [Percocet 325-5 MG] Med 07/08/17 22:18 Active 2 tab PO Q4H PRN Bisacodyl [Dulcolax] Med 07/08/17 22:18 Active 10 mg RECTAL .ONCE PRN Citric Acid/Sodium Citrate [Bicitra Solution] Med 07/08/17 15:45 Active 30 ml PO .ONCE Docusate Sodium [Colace] Med 07/09/17 09:00 Active 100 mg PO BID Ibuprofen [Motrin] Med 07/10/17 04:00 Active 800 mg PO Q8H PRN Insulin Aspart [NovoLOG] Med 07/09/17 07:30 Active See Protocol SUBCUT ACBED Lactated Ringers [Ringers, Lactated] 1,000 ml Med 07/08/17 15:45 Active IV .BOLUS Lactated Ringers [Ringers, Lactated] 1,000 ml Med 07/08/17 22:30 Active IV ASDIRECTED Lanolin [Lansinoh HPA] Med 07/08/17 22:18 Active See Dose Instructions TOP ASDIRECTED PRN Methylergonovine [Methergine] Med 07/08/17 23:15 Active 0.2 mg IM .ONETIME Misoprostol [Cytotec] Med 07/08/17 23:15 Active 400 mcg PO .ONETIME Nalbuphine [Nubain] Med 07/08/17 22:54 Active 2.5 mg IVPUSH Q3H PRN Naloxone [Narcan] Med 07/08/17 22:54 Active 0.1 mg IVPUSH ONETIME PRN Ondansetron [Zofran] Med 07/08/17 22:18 Active 4 mg IV Q4H PRN Sodium Chloride 0.9% [Saline Flush] Med 07/08/17 15:36 Active 10 ml FLUSH ASDIRECTED PRN Sodium Chloride 0.9% [Saline Flush] Med 07/08/17 15:36 Active 2.5 ml FLUSH ASDIRECTED PRN diphenhydrAMINE [Benadryl] Med 07/08/17 22:18 Active 25 mg IVPUSH Q6H PRN fentaNYL [Sublimaze] Med 07/08/17 22:54 Active 50 mcg IVPUSH Q5M PRN oxyCODONE Med 07/09/17 11:44 Active 5 mg PO Q4H PRN AN Neuroaxis [employer] Precaution Reflex [OM.PC] PER Ot 07/08/17 23:00 Ordered UNIT ROUTINE AN Neuroaxis [employer] Precaution Reflex [OM.PC] PER Ot 07/09/17 23:00 Ordered UNIT ROUTINE Assess Lochia [WOMSER] Per Unit Routine Ot 07/08/17 22:18 Ordered Assess Uterine Involution [WOMSER] Per Unit Routine Ot 07/08/17 22:18 Ordered Breast Pump [WOMSER] Per Unit Routine Ot 07/08/17 22:18 Ordered Peripheral IV Discontinue [OM.PC] Routine Ot 07/08/17 22:18 Ordered Peripheral IV Insertion Adult [OM.PC] Routine Ot 07/08/17 15:36 Ordered Schedule Procedure [COMM] Per Unit Routine Ot 07/08/17 15:36 Ordered Sequential Compression Device [OM.PC] Per Unit Routine Ot 07/08/17 22:18 Ordered Transfuse RBC [Transfuse Red Blood Cells] [COMM] Stat Ot 07/09/17 03:16 Ordered Transfuse RBC [Transfuse Red Blood Cells] [COMM] Stat Ot 07/09/17 03:21 Ordered Transfuse Red Blood Cells [COMM] Stat Ot 07/09/17 02:09 Ordered Transfuse Red Blood Cells [COMM] Stat Ot 07/09/17 02:51 Ordered Resuscitation Status Routine Resus Stat 07/08/17 13:17 Ordered Medication Orders Bisacodyl (Dulcolax) 10 mg RECTAL .ONCE PRN PRN Reason: Constipation Citric Acid/Sodium Citrate (Bicitra Solution) 30 ml PO .ONCE [facility] Last Admin: 07/08/17 21:03 Dose: 30 ml Diphenhydramine HCl (Benadryl) 25 mg IVPUSH Q6H PRN PRN Reason: Itching or Nausea Docusate Sodium (Colace) 100 mg PO BID [facility] Last Admin: 07/09/17 08:00 Dose: 100 mg Emollient Ointment (Lansinoh Hpa) 0 gm TOP ASDIRECTED PRN PRN Reason: Sore Nipples Fentanyl (Sublimaze) 50 mcg IVPUSH Q5M PRN PRN Reason: Breakthrough Pain Stop: 07/09/17 22:00 Lactated Ringer's (Ringers, Lactated) 1,000 mls @ 500 mls/hr IV .BOLUS [facility] Last Admin: 07/08/17 18:42 Dose: 125 mls/hr Infusion: 07/08/17 18:42 Dose: 1,000 mls/hr Admin: 07/08/17 17:45 Dose: 1,000 mls/hr Lactated Ringer's (Ringers, Lactated) 1,000 mls @ 125 mls/hr IV ASDIRECTED [facility] Last Admin: 07/09/17 07:50 Dose: 125 mls/hr Infusion: 07/09/17 07:50 Dose: 125 mls/hr Admin: 07/09/17 00:36 Dose: 125 mls/hr Ibuprofen (Motrin) 800 mg PO Q8H PRN PRN Reason: mild pain or fever Insulin Aspart (Novolog) 0 unit SUBCUT ACBED [facility]; Protocol Last Admin: 07/09/17 11:42 Dose: 2 unit Admin: 07/09/17 07:53 Dose: 4 unit Methylergonovine Maleate (Methergine) 0.2 mg IM .ONETIME [facility] Last Admin: 07/08/17 23:38 Dose: 0.2 mg Misoprostol (Cytotec) 400 mcg PO .ONETIME [facility] Last Admin: 07/08/17 23:34 Dose: 400 mcg Nalbuphine HCl (Nubain) 2.5 mg IVPUSH Q3H PRN PRN Reason: Pruritis Stop: 07/09/17 22:54 Last Admin: 07/09/17 04:07 Dose: 2.5 mg Naloxone HCl (Narcan) 0.1 mg IVPUSH ONETIME PRN PRN Reason: RR<6 WITH STIMULATION Stop: 07/09/17 22:54 Ondansetron HCl (Zofran) 4 mg IV Q4H PRN PRN Reason: Nausea/Vomiting Last Admin: 07/09/17 00:01 Dose: 4 mg Oxycodone HCl (Oxycodone) 5 mg PO Q4H PRN PRN Reason: Pain Last Admin: 07/09/17 12:08 Dose: 5 mg Oxycodone/Acetaminophen (Percocet 325-5 Mg) 1 tab PO Q4H PRN PRN Reason: Pain (moderate 4-6) Last Admin: 07/09/17 08:52 Dose: 1 tab Oxycodone/Acetaminophen (Percocet 325-5 Mg) 2 tab PO Q4H PRN PRN Reason: Pain (moderate 4-6) Sodium Chloride (Saline Flush) 10 ml FLUSH ASDIRECTED PRN PRN Reason: Keep Vein Open Sodium Chloride (Saline Flush) 2.5 ml FLUSH ASDIRECTED PRN PRN Reason: Keep Vein Open - Plan Plan (Free Text/Narrative):: Patient is status post surgery P section and salpingectomy for tubal ligation intraoperatively the patient did well have no complication however postoperatively she start exhibiting some form of intraperitoneal bleed. Severe eyes most likely from the site of the tubal ligation she has hypertension and tachycardia and diminished urine output patient transferred temporarily to the intensive care and with the help of anesthesia personnel we transfuse the patient 3 units of packed cells and she recovered her posttransfusion hematocrit is within normal limit [place] is very comparable to the one preoperatively this morning the patient oriented to place and time and she expressed her desire to eat and by mouth food her abdomen is soft bowel sound was present there is no tenderness or rebound tenderness. My plan is to transfer the patient back to her OB care start a regular post OB care
--- NOTE | 2017-07-09 15:03 | PCM48HPAN ---
Post Anesthesia Note - EVALUATION WITHIN 48HRS OF ANESTHETIC Vital Signs in Normal Range: Yes Patient Participated in Evaluation: Yes Respiratory Function Stable: Yes Airway Patent: Yes Cardiovascular Function Stable: Yes Hydration Status Stable: Yes Pain Control Satisfactory: Yes Nausea and Vomiting Control Satisfactory: Yes Mental Status Recovered: Yes Pulse Rate: 90 Resp Rate: 18 Temperature: 99.1 F Blood Pressure: 116/53
[2017-07-10] MEDS ORDERED: Ibuprofen 800 MG Tab PO PRN (04:00)
[2017-07-10] MEDS: Acetaminophen/oxyCODONE 325-5 MG Tab PO PRN ×4 (04:05→20:48)
[2017-07-10] MEDS: Insulin Aspart 100 Units/ML 3 ML Pen SUBCUT SCH ×4 (07:23→20:56)
[2017-07-10] MEDS: Docusate Sodium 100 MG Cap PO SCH ×2 (08:12→20:47)
--- NOTE | 2017-07-10 11:13 | PCM.PNPP ---
- General Info Date of Service: 07/10/17 Functional Status: Reports: Pain Controlled - Review of Systems General: Reports: No Symptoms HEENT: Reports: No Symptoms Pulmonary: Reports: No Symptoms Cardiovascular: Reports: No Symptoms Gastrointestinal: Reports: No Symptoms Genitourinary: Reports: No Symptoms Musculoskeletal: Reports: No Symptoms Skin: Reports: No Symptoms Neurological: Reports: No Symptoms Psychiatric: Reports: No Symptoms - General Info Date of Service: 07/10/17 - Patient Data Vital Signs - Most Recent: Last Vital Signs Temp 36.2 C 07/10/17 07:26 Pulse 104 H 07/10/17 07:26 Resp 20 07/10/17 07:26 BP 145/88 H 07/10/17 07:26 Pulse Ox 95 07/10/17 07:26 Weight - Most Recent: 134.263 kg I&O - Last 24 Hours: Intake & Output 07/09/17 07/10/17 07/10/17 22:59 06:59 14:59 Intake Total 1500 Output Total 1800 Balance -300 Lab Results - Last 24 Hours: Laboratory Results - last 24 hr 07/08/17 07/09/17 07/09/17 Range/Units 16:05 11:17 17:25 POC Glucose 199 H 279 H (60-110) mg/dL Blood Type A POSITIVE Antibody Screen NEGATIVE Crossmatch See Detail 07/09/17 07/10/17 Range/Units 21:28 07:19 POC Glucose 279 H 234 H (60-110) mg/dL Blood Type Antibody Screen Crossmatch Med Orders - Current: Current Medications Bisacodyl (Dulcolax) 10 mg RECTAL .ONCE PRN PRN Reason: Constipation Citric Acid/Sodium Citrate (Bicitra Solution) 30 ml PO .ONCE MAYRA Last Admin: 07/08/17 21:03 Dose: 30 ml Diphenhydramine HCl (Benadryl) 25 mg IVPUSH Q6H PRN PRN Reason: Itching or Nausea Last Admin: 07/09/17 16:00 Dose: 25 mg Docusate Sodium (Colace) 100 mg PO BID MAYRA Last Admin: 07/10/17 08:12 Dose: 100 mg Emollient Ointment (Lansinoh Hpa) 0 gm TOP ASDIRECTED PRN PRN Reason: Sore Nipples Lactated Ringer's (Ringers, Lactated) 1,000 mls @ 500 mls/hr IV .BOLUS MAYRA Last Admin: 07/08/17 18:42 Dose: 125 mls/hr Lactated Ringer's (Ringers, Lactated) 1,000 mls @ 125 mls/hr IV ASDIRECTED MAYRA Last Admin: 07/09/17 15:13 Dose: 125 mls/hr Ibuprofen (Motrin) 800 mg PO Q8H PRN PRN Reason: mild pain or fever Insulin Aspart (Novolog) 0 unit SUBCUT ACBED MAYRA; Protocol Last Admin: 07/10/17 07:23 Dose: 4 unit Methylergonovine Maleate (Methergine) 0.2 mg IM .ONETIME MAYRA Last Admin: 07/08/17 23:38 Dose: 0.2 mg Misoprostol (Cytotec) 400 mcg PO .ONETIME MAYRA Last Admin: 07/08/17 23:34 Dose: 400 mcg Ondansetron HCl (Zofran) 4 mg IV Q4H PRN PRN Reason: Nausea/Vomiting Last Admin: 07/09/17 00:01 Dose: 4 mg Oxycodone HCl (Oxycodone) 5 mg PO Q4H PRN PRN Reason: Pain Last Admin: 07/09/17 12:08 Dose: 5 mg Oxycodone/Acetaminophen (Percocet 325-5 Mg) 1 tab PO Q4H PRN PRN Reason: Pain (moderate 4-6) Last Admin: 07/09/17 08:52 Dose: 1 tab Oxycodone/Acetaminophen (Percocet 325-5 Mg) 2 tab PO Q4H PRN PRN Reason: Pain (moderate 4-6) Last Admin: 07/10/17 08:12 Dose: 2 tab Sodium Chloride (Saline Flush) 10 ml FLUSH ASDIRECTED PRN PRN Reason: Keep Vein Open Sodium Chloride (Saline Flush) 2.5 ml FLUSH ASDIRECTED PRN PRN Reason: Keep Vein Open Discontinued Medications Cefazolin Sodium/Dextrose (Ancef) Confirm Administered Dose 2 gm IV .STK-MED ONE Stop: 07/08/17 17:40 Ephedrine Sulfate (Ephedrine Sulfate) Confirm Administered Dose 50 mg .ROUTE .STK-MED ONE Stop: 07/08/17 17:40 Fentanyl (Sublimaze) Confirm Administered Dose 250 mcg .ROUTE .STK-MED ONE Stop: 07/08/17 22:02 Fentanyl (Sublimaze) 50 mcg IVPUSH Q5M PRN PRN Reason: Breakthrough Pain Stop: 07/09/17 22:00 Furosemide (Lasix) 40 mg IVPUSH NOW ONE Stop: 07/09/17 03:11 Last Admin: 07/09/17 03:27 Dose: 40 mg Cefazolin Sodium/Dextrose 2 gm (/ Premix) 50 mls @ 100 mls/hr IV ONETIME ONE Stop: 07/08/17 16:05 Last Admin: 07/09/17 04:18 Dose: Not Given Oxytocin/Sodium Chloride (Oxytocin 30 Unit/500 Ml-Ns) 30 unit in 500 mls @ 250 mls/hr IV TITRATE MAYRA Oxytocin/Sodium Chloride (Oxytocin 30 Unit/500 Ml-Ns) Confirm Administered Dose 30 unit in 500 mls @ as directed .ROUTE .STK-MED ONE Stop: 07/08/17 21:01 Last Admin: 07/09/17 04:19 Dose: Not Given Insulin Aspart (Novolog) 0 unit SUBCUT ACBREAKFASTANDBED MAYRA; Protocol Last Admin: 07/09/17 03:08 Dose: 6 units Ketorolac Tromethamine (Toradol) 30 mg IVPUSH Q6H MYARA Stop: 07/09/17 22:01 Last Admin: 07/09/17 04:29 Dose: Not Given Methylergonovine Maleate (Methergine) Confirm Administered Dose 0.2 mg .ROUTE .STK-MED ONE Stop: 07/08/17 23:12 Morphine Sulfate (Duramorph Pf) Confirm Administered Dose 1 mg .ROUTE .STK-MED ONE Stop: 07/08/17 17:42 Nalbuphine HCl (Nubain) 2.5 mg IVPUSH Q3H PRN PRN Reason: Pruritis Stop: 07/09/17 22:54 Last Admin: 07/09/17 04:07 Dose: 2.5 mg Naloxone HCl (Narcan) 0.1 mg IVPUSH ONETIME PRN PRN Reason: RR<6 WITH STIMULATION Stop: 07/09/17 22:54 Octyl Cyanoacrylate (Dermabond Advance) Confirm Administered Dose 1 applic .ROUTE .STK-MED ONE Stop: 07/08/17 17:46 Oxytocin (Pitocin) Confirm Administered Dose 20 unit .ROUTE .STK-MED ONE Stop: 07/08/17 23:03 Phenylephrine HCl (Phenylephrine In Ns 100 Mcg/Ml) Confirm Administered Dose 1 mg .ROUTE .STK-MED ONE Stop: 07/08/17 21:37 Phenylephrine HCl (Phenylephrine In Ns 100 Mcg/Ml) Confirm Administered Dose 1 mg .ROUTE .STK-MED ONE Stop: 07/09/17 01:53 Tranexamic Acid (Cyklokapron) Confirm Administered Dose 1,000 mg .ROUTE .STK- MED ONE Stop: 07/08/17 23:17 - Interaction Disposition, : [place] in Room with Family Interaction: Holding Infant Feeding: Attempted ; Nursed Fair/Poor Support Person: - Recovery Exam Fundal Tone: Firm Fundal Level: 1 Fingerbreadths Below Umbilicus Fundal Placement: Midline Lochia Amount: Small Lochia Color: Rubra/Red Perineum Description: Intact, Minimal Bruising/Swelling Bladder Status: Nonpalpable Urinary Elimination: Other (see below) Other Urinary Elimination, : catheter removed, yet to void - Exam General: Alert, Oriented HEENT: Pupils Equal Neck: Supple Lungs: Clear to Auscultation, Normal Respiratory Effort Cardiovascular: Regular Rate, Regular Rhythm GI/Abdominal Exam: Normal Bowel Sounds, Soft, Non-Tender, No Organomegaly, No Distention, No Abnormal Bruit, No Mass, Pelvis Stable Extremities: Normal Inspection, Normal Range of Motion, Non-Tender, No Pedal Edema, Normal Capillary Refill Skin: Warm, Dry, Intact Wound/Incisions: Healing Well Neurological: No New Focal Deficit Psy/Mental Status: Alert, Normal Affect, Normal Mood - Problem List Review Problem List Initiated/Reviewed/Updated: Yes - My Orders Last 24 Hours: My Active Orders 07/09/17 11:44 oxyCODONE 5 mg PO Q4H PRN 07/09/17 Lunch Regular Diet [DIET] 07/10/17 04:00 Ibuprofen [Motrin] 800 mg PO Q8H PRN - Plan Plan:: Will be discharge in am.
[2017-07-11] MEDS: oxyCODONE 5 MG Tab PO PRN (01:41)
[2017-07-11] MEDS: Acetaminophen/oxyCODONE 325-5 MG Tab PO PRN ×2 (06:00→11:26)
[2017-07-11] MEDS: Insulin Aspart 100 Units/ML 3 ML Pen SUBCUT SCH (07:57)
[2017-07-11] MEDS ORDERED: Polyethylene Glycol 3350 Powder 17 GM Packet PO ONE (08:21)
--- NOTE | 2017-07-11 09:40 | PCM.DCSUM1 ---
Discharge Summary - Discharge Data Discharge Date: 07/11/17 Discharge Disposition: Home, Self-Care 01 Condition: Good - Patient Summary/Data Consults: Consultations 07/11/17 08:35 Nutrition Reassessment/Plan, Adult [Consult to Applied Exercise Physiologist] [CONS] Routine - Patient Instructions Diet: Usual Diet as Tolerated Activity: As Tolerated Driving: Do Not Drive Showering/Bathing: May Shower Wound/Incision Care: Keep Operative Site/Wound Site Clean and Dry Notify Provider of: Fever, Increased Pain - Discharge Plan Home Medications: Home Meds Vit W-Ca,Fe,FA(<1 mg) [ Vitamins] 1 tab PO DAILY 04/28/17 [ History] Insulin Detemir [Levemir Flextouch] 100 ml SUBCUT ASDIRECTED PRN 05/26/17 [ History] Insulin Lispro [Humalog] 100 pen SUBCUT ASDIRECTED PRN 05/26/17 [History] Iron 1 tab PO DAILY 05/26/17 [History] Referrals: [facility] [Outside] Curtis Vail MD [Physician] - (1 week- July 16 @ 8:45am w/ Dr. Vail 6 week- August 18 @ 9:30am w/ Dr. Vail ) - Patient Data Vitals - Most Recent: Last Vital Signs Temp 36.2 C 07/11/17 05:37 Pulse 95 07/11/17 05:37 Resp 17 07/11/17 05:37 BP 145/83 H 07/11/17 05:37 Pulse Ox 100 07/11/17 05:37 Weight - Most Recent: 134.263 kg Lab Results - Last 24 hrs: Laboratory Results - last 24 hr 07/10/17 07/10/17 07/10/17 Range/Units 11:21 16:00 20:51 POC Glucose 293 H 227 H 255 H (60-110) mg/dL 07/11/17 Range/Units 07:55 POC Glucose 391 H (60-110) mg/dL Med Orders - Current: Current Medications Bisacodyl (Dulcolax) 10 mg RECTAL .ONCE PRN PRN Reason: Constipation Citric Acid/Sodium Citrate (Bicitra Solution) 30 ml PO .ONCE MAYRA Last Admin: 07/08/17 21:03 Dose: 30 ml Diphenhydramine HCl (Benadryl) 25 mg IVPUSH Q6H PRN PRN Reason: Itching or Nausea Last Admin: 07/09/17 16:00 Dose: 25 mg Docusate Sodium (Colace) 100 mg PO BID MAYRA Last Admin: 07/10/17 20:47 Dose: 100 mg Emollient Ointment (Lansinoh Hpa) 0 gm TOP ASDIRECTED PRN PRN Reason: Sore Nipples Lactated Ringer's (Ringers, Lactated) 1,000 mls @ 500 mls/hr IV .BOLUS MAYRA Last Admin: 07/08/17 18:42 Dose: 125 mls/hr Lactated Ringer's (Ringers, Lactated) 1,000 mls @ 125 mls/hr IV ASDIRECTED [facility] Last Admin: 07/09/17 15:13 Dose: 125 mls/hr Ibuprofen (Motrin) 800 mg PO Q8H PRN PRN Reason: mild pain or fever Insulin Aspart (Novolog) 0 unit SUBCUT ACBED [facility]; Protocol Last Admin: 07/11/17 07:57 Dose: 10 unit Methylergonovine Maleate (Methergine) 0.2 mg IM .ONETIME [facility] Last Admin: 07/08/17 23:38 Dose: 0.2 mg Misoprostol (Cytotec) 400 mcg PO .ONETIME [facility] Last Admin: 07/08/17 23:34 Dose: 400 mcg Ondansetron HCl (Zofran) 4 mg IV Q4H PRN PRN Reason: Nausea/Vomiting Last Admin: 07/09/17 00:01 Dose: 4 mg Oxycodone HCl (Oxycodone) 5 mg PO Q4H PRN PRN Reason: Pain Last Admin: 07/11/17 01:41 Dose: 5 mg Oxycodone/Acetaminophen (Percocet 325-5 Mg) 1 tab PO Q4H PRN PRN Reason: Pain (moderate 4-6) Last Admin: 07/10/17 20:48 Dose: 1 tab Oxycodone/Acetaminophen (Percocet 325-5 Mg) 2 tab PO Q4H PRN PRN Reason: Pain (moderate 4-6) Last Admin: 07/11/17 06:00 Dose: 2 tab Sodium Chloride (Saline Flush) 10 ml FLUSH ASDIRECTED PRN PRN Reason: Keep Vein Open Sodium Chloride (Saline Flush) 2.5 ml FLUSH ASDIRECTED PRN PRN Reason: Keep Vein Open Discontinued Medications Cefazolin Sodium/Dextrose (Ancef) Confirm Administered Dose 2 gm IV .STK-MED ONE Stop: 07/08/17 17:40 Ephedrine Sulfate (Ephedrine Sulfate) Confirm Administered Dose 50 mg .ROUTE .STK-MED ONE Stop: 07/08/17 17:40 Fentanyl (Sublimaze) Confirm Administered Dose 250 mcg .ROUTE .STK-MED ONE Stop: 07/08/17 22:02 Fentanyl (Sublimaze) 50 mcg IVPUSH Q5M PRN PRN Reason: Breakthrough Pain Stop: 07/09/17 22:00 Furosemide (Lasix) 40 mg IVPUSH NOW ONE Stop: 07/09/17 03:11 Last Admin: 07/09/17 03:27 Dose: 40 mg Cefazolin Sodium/Dextrose 2 gm (/ Premix) 50 mls @ 100 mls/hr IV ONETIME ONE Stop: 07/08/17 16:05 Last Admin: 07/09/17 04:18 Dose: Not Given Oxytocin/Sodium Chloride (Oxytocin 30 Unit/500 Ml-Ns) 30 unit in 500 mls @ 250 mls/hr IV TITRATE MAYRA Oxytocin/Sodium Chloride (Oxytocin 30 Unit/500 Ml-Ns) Confirm Administered Dose 30 unit in 500 mls @ as directed .ROUTE .STK-MED ONE Stop: 07/08/17 21:01 Last Admin: 07/09/17 04:19 Dose: Not Given Insulin Aspart (Novolog) 0 unit SUBCUT ACBREAKFASTANDBED MAYRA; Protocol Last Admin: 07/09/17 03:08 Dose: 6 units Ketorolac Tromethamine (Toradol) 30 mg IVPUSH Q6H MAYRA Stop: 07/09/17 22:01 Last Admin: 07/09/17 04:29 Dose: Not Given Methylergonovine Maleate (Methergine) Confirm Administered Dose 0.2 mg .ROUTE .STK-MED ONE Stop: 07/08/17 23:12 Morphine Sulfate (Duramorph Pf) Confirm Administered Dose 1 mg .ROUTE .STK-MED ONE Stop: 07/08/17 17:42 Nalbuphine HCl (Nubain) 2.5 mg IVPUSH Q3H PRN PRN Reason: Pruritis Stop: 07/09/17 22:54 Last Admin: 07/09/17 04:07 Dose: 2.5 mg Naloxone HCl (Narcan) 0.1 mg IVPUSH ONETIME PRN PRN Reason: RR<6 WITH STIMULATION Stop: 07/09/17 22:54 Octyl Cyanoacrylate (Dermabond Advance) Confirm Administered Dose 1 applic .ROUTE .STK-MED ONE Stop: 07/08/17 17:46 Oxytocin (Pitocin) Confirm Administered Dose 20 unit .ROUTE .STK-MED ONE Stop: 07/08/17 23:03 Phenylephrine HCl (Phenylephrine In Ns 100 Mcg/Ml) Confirm Administered Dose 1 mg .ROUTE .STK-MED ONE Stop: 07/08/17 21:37 Phenylephrine HCl (Phenylephrine In Ns 100 Mcg/Ml) Confirm Administered Dose 1 mg .ROUTE .STK-MED ONE Stop: 07/09/17 01:53 Polyethylene Glycol (Miralax) 17 gm PO ONETIME ONE Stop: 07/11/17 08:22 Tranexamic Acid (Cyklokapron) Confirm Administered Dose 1,000 mg .ROUTE .STK- MED ONE Stop: 07/08/17 23:17 - Exam General: Reports: Alert, Oriented HEENT: Reports: Pupils Equal, Pupils Reactive, EOMI, Mucous Membr. Moist/[place] Neck: Reports: Supple Lungs: Reports: Clear to Auscultation, Normal Respiratory Effort Cardiovascular: Reports: Regular Rate, Regular Rhythm GI/Abdominal Exam: Normal Bowel Sounds, Soft, Non-Tender, No Organomegaly, No Distention, No Abnormal Bruit, No Mass, Pelvis Stable (Female) Exam: Normal External Exam, Normal Speculum Exam, Normal Bimanual Exam Rectal (Female) Exam: Normal Exam, Normal Rectal Tone Back Exam: Reports: Normal Inspection, Full Range of Motion Extremities: Normal Inspection, Normal Range of Motion, Non-Tender, No Pedal Edema, Normal Capillary Refill Skin: Reports: Warm, Dry, Intact Wound/Incisions: Reports: Healing Well Neurological: Reports: No New Focal Deficit Psy/Mental Status: Reports: Alert, Normal Affect, Normal Mood
== END 2017-07-11 14:15 | disposition home or self-care (01) | DRG 765 ==
LOC: MW.OBCHECK 12:54 → MW.OB 12:56 → MW.OBCHECK 13:17 → OBSVTOIN 13:17 → MW.OB 13:17 → MW.ICU 07-09 02:20 → MW.OB 07-09 10:28
PROVIDERS: ADMIT Obstetrics & Gynecology; ATTEND Obstetrics & Gynecology
PROC: 10D00Z1 Extraction of Products of Conception, Low, Open Approach (ICD-10-PCS; principal; 2017-07-08)
PROC: 0UT70ZZ Resection of Bilateral Fallopian Tubes, Open Approach (ICD-10-PCS; 2017-07-08)
PROC: 30233N1 Transfusion of Nonautologous Red Blood Cells into Peripheral Vein, Percutaneous Approach (ICD-10-PCS; 2017-07-09)
DX: O24.424 Gestational diabetes mellitus in childbirth, insulin controlled (principal); O72.1 Other immediate postpartum hemorrhage; D62 Acute posthemorrhagic anemia; O90.81 Anemia of the puerperium; O76 Abnormality in fetal heart rate and rhythm complicating labor and delivery; I95.81 Postprocedural hypotension; Z3A.37 37 weeks gestation of pregnancy; Z37.0 Single live birth; Z30.2 Encounter for sterilization
CPT/HCPCS: 01961; 36415; 36430; 59025; 80053; 82962; 85014; 85018; 85025; 85027; 85384; 85610; 86850; 86900; 86901; 86920; 86921; 86922; 88302; A9270-GY; J0690; J1200; J1815-GY; J1940; J2210; J2274; J2300; J2405; J2590; J3010; J7120; P9016